=== PATIENT | female | born 1985 | race Caucasian/White ===

== ENCOUNTER 2023-04-11 13:15 | Emergency (ER) | payer SELFPAY ==
[~2023-04-11] VITALS: Ht 162.6 cm; Wt 61.7 kg
[2023-04-11 13:20] VITALS: O2SAT 100
== END 2023-04-11 16:08 | disposition home or self-care (01) ==
LOC: ER 13:44
DX: M54.2 Cervicalgia (principal); S20.211A Contusion of right front wall of thorax, initial encounter; R07.89 Other chest pain; V43.52XA Car driver injured in collision with other type car in traffic accident, initial encounter; Y92.488 Other paved roadways as the place of occurrence of the external cause; J45.909 Unspecified asthma, uncomplicated
CPT/HCPCS: 99283

== ENCOUNTER 2024-11-20 09:25 | Emergency (ER) | payer OTHER ==
[~2024-11-20] VITALS: Ht 162.6 cm; Wt 61.7 kg
[2024-11-20 09:25] VITALS: PULSE 74; RESP 15; TEMP 97.8
[2024-11-20] MEDS: CYCLOBENZAPRINE HCL 10 MG TAB PO ONE (10:03)
[2024-11-20] MEDS: KETOROLAC TROMETHAMINE 60 MG/2 ML VIAL IM ONE (10:04)
[2024-11-20] MEDS ORDERED: CYCLOBENZAPRINE10 MG PO (10:59)
[2024-11-20 11:07] VITALS: BP 112/83; PULSE 72; RESP 18; TEMP 97.5; O2SAT 99
== END 2024-11-20 11:08 | disposition home or self-care (01) ==
LOC: ER 09:50
DX: M54.50 Low back pain, unspecified (principal); X50.1XXA Overexertion from prolonged static or awkward postures, initial encounter; Y92.89 Other specified places as the place of occurrence of the external cause; J45.909 Unspecified asthma, uncomplicated
CPT/HCPCS: 99283; J1885